=== PATIENT | male | born 2000 | race Caucasian/White ===

== ENCOUNTER 2022-06-09 23:52 | Observation (INO) | payer OTHER ==
[~2022-06-09] VITALS: Ht 180.3 cm; Wt 75.0 kg
[2022-06-10] MEDS ORDERED: NS 1,000 ML IV ONE (00:10)
[2022-06-10] MEDS ORDERED: ISOVUE-370 76% 100ML VIAL As Ordered ONE (00:10)
[2022-06-10 00:25] LABS: BASO % 0.4 % (0.0-1.0); EOS # 0.1 10^3/uL (0.0-0.5); EOS % 1.2 % (0.0-3.0); HEMOGLOBIN 13.2 g/dl (13.5-17.5); LYMPH # 2.9 10^3/uL (1.5-5.0); LYMPH % 28.9 % (24.0-44.0); MEAN CORPUSCULAR HEMOGLOBIN 30.5 pg (27.0-33.0); MEAN CORPUSCULAR VOLUME 92.4 fl (80.0-96.0); MONO # 0.6 10^3/uL (0.0-0.8); MONO % 5.7 % (2.0-8.0); NEUTROPHILS # 6.2 10^3/uL (1.5-8.5); NEUTROPHILS % 63.3 % (36.0-66.0); PLATELET COUNT, AUTOMATED 291 10^3/uL (150-450); RED BLOOD COUNT 4.33 10^6/uL (4.30-6.10); WHITE BLOOD COUNT 9.9 10^3/uL (4.0-10.0)
[2022-06-10 00:37] LABS: ABG HCO3 20.7 MEQ/L (22.0-26.0); ABG O2 SATURATION 97.7 % (95.0-99.0); ABG PARTIAL PRESSURE CO2 36.8 mmHg (35.0-45.0); ABG PARTIAL PRESSURE O2 105.6 mmHg (75.0-100.0); ABG STANDARD HCO3 21.2 MEQ/L (22.0-26.0); ABG TOTAL CO2 21.8 MEQ/L (22.0-29.0); ABG pH (ARTERIAL) 7.368 UNITS (7.350-7.450)
[2022-06-10 00:45] LABS: INR 1.05; PARTIAL THROMBOPLASTIN TIME 29.3 SECONDS (25.9-37.0); PROTHROMBIN TIME 14.1 SECONDS (12.7-14.5)
[2022-06-10 00:58] LABS: ALBUMIN 3.7 GM/DL (3.2-5.2); BILIRUBIN,DIRECT 0.1 MG/DL (0.0-0.2); BILIRUBIN,TOTAL 0.3 MG/DL (0.2-1.0); ETHYL ALCOHOL (ETHANOL) 0.09 % (0.000-0.010); TOTAL PROTEIN 7.1 GM/DL (6.4-8.2)
[2022-06-10 01:00] LABS: MB/CK RELATIVE INDEX 0.69 (< OR =4)
[2022-06-10 01:04] LABS: RSV AMPLIFICATION NEGATIVE (NEGATIVE)
[2022-06-10 01:13] LABS: APPEARANCE, URINE MANUAL CLEAR (CLEAR); COLOR, URINE MANUAL LT YELLOW (YELLOW)
[2022-06-10 01:23] LABS: BILIRUBIN, URINE MANUAL NEGATIVE (NEGATIVE); BLOOD URINE MANUAL NEGATIVE (NEGATIVE); GLUCOSE, URINE (UA) MANUAL TRACE(50 MG/DL) mg/dL (NEGATIVE); KETONE, URINE MANUAL NEGATIVE (NEGATIVE); LEUKOCYTE ESTERASE, URINE MAN NEGATIVE (NEGATIVE); NITRITE, URINE MANUAL NEGATIVE (NEGATIVE); PROTEIN, URINE MANUAL NEGATIVE (NEGATIVE); UROBILINOGEN, URINE MANUAL NORMAL (NORMAL)
[2022-06-10 01:46] LABS: AMPHETAMINES LEVEL URINE NEGATIVE (NEGATIVE); BARBITURATES URINE NEGATIVE (NEGATIVE); BENZODIAZEPINES URINE NEGATIVE (NEGATIVE); CANNABINOIDS URINE NEGATIVE (NEGATIVE); COCAINE METABOLITE URINE NEGATIVE (NEGATIVE); METHADONE URINE NEGATIVE (NEGATIVE); OPIATES URINE NEGATIVE (NEGATIVE); PHENCYCLIDINE URINE NEGATIVE (NEGATIVE)
[2022-06-10] MEDS ORDERED: ONDANSETRON 4MG 2ML VIAL IV PRN (02:25)
[2022-06-10] MEDS ORDERED: HOME MED LIST COMPLETE! XX SCH (02:50)
[2022-06-10] MEDS: LR 1,000 ML IV SCH ×2 (03:41→13:44)
[2022-06-10 05:06] LABS: HEMATOCRIT 38.8 % (42.0-52.0); HEMOGLOBIN 13.2 g/dl (13.5-17.5); MEAN CORPUSCULAR HEMOGLOBIN 30.8 pg (27.0-33.0); MEAN CORPUSCULAR VOLUME 90.7 fl (80.0-96.0); PLATELET COUNT, AUTOMATED 287 10^3/uL (150-450); RED BLOOD COUNT 4.28 10^6/uL (4.30-6.10); WHITE BLOOD COUNT 12.8 10^3/uL (4.0-10.0)
[2022-06-10] MEDS: KETOROLAC 30 MG/ML 1ML VIAL IV PRN ×2 (07:31→12:57)
[2022-06-10 09:21] VITALS: BP 120/73
[2022-06-10 12:00] VITALS: BP 139/87
[2022-06-10] MEDS ORDERED: HYDR-3713 PO (15:25)
== END 2022-06-10 16:07 | disposition home or self-care (01) ==
LOC: M ED 23:52 → EDBD 23:52 → M ED INP 06-10 02:21 → M PED 06-10 09:21
PROVIDERS: ADMIT Surgery; ATTEND Surgery
DX: S27.329A Contusion of lung, unspecified, initial encounter (principal); V47.6XXA Car passenger injured in collision with fixed or stationary object in traffic accident, initial encounter; M25.521 Pain in right elbow; Y92.410 Unspecified street and highway as the place of occurrence of the external cause; Z88.5 Allergy status to narcotic agent; Y99.9 Unspecified external cause status; Y93.9 Activity, unspecified
CPT/HCPCS: 36600; 70450; 71045; 71046; 71260; 72125; 74177; 80047; 80076; 80307; 81002; 82077; 82150; 82550; 82553; 82803; 83605; 83690; 84484; 85025; 85027; 85610; 85730; 86850; 86900; 86901; 87631; 93005; 93041; 94760; 96361; 96374; 96375; 96376; 99285; J1885; Q9967